=== PATIENT | male | born 1980 | race Caucasian/White ===

== ENCOUNTER 2019-03-29 12:18 | Emergency (ER) | payer OTHER ==
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
--- NOTE | 2019-03-29 13:45 | CT ---
CT cervical spine Technique: Multiple axial sections were obtained from above C1 inferiorly to the top of T2. Reconstructed sagittal and coronal images were reviewed. Findings: Vertebral body heights and disc spaces are maintained. No bony central or bony neural foraminal stenosis is seen. No fracture is appreciated. No abnormal subluxation is seen. Impression: 1. Nothing acute is appreciated on CT study of the cervical spine. Diagnostic code #1
--- NOTE | 2019-03-29 13:48 | CT ---
Head CT Technique: Multiple axial sections through the brain were obtained. Intravenous contrast was not utilized. Comparison: No prior intracranial imaging is available. Findings: Ventricles along with basal cisterns and sulci over the convexities appear within normal limits for the patient's age. No abnormal parenchymal densities are seen. No evidence of intracranial hemorrhage. No midline shift or mass effect is seen. Bone window settings were reviewed. There is mild mucosal thickening noted within the ethmoid sinuses. Mastoid sinuses are clear. No acute calvarial abnormality is appreciated. Impression: 1. Mucosal thickening within the ethmoid sinuses which is believed to be pre-existing and most likely chronic if patient has no symptoms of acute sinusitis. 2. No acute intracranial abnormality is appreciated. Diagnostic code #2
--- NOTE | 2019-03-29 13:51 | CT ---
CT lumbar spine Technique: Multiple axial sections through the lumbar spine were obtained. Reconstructed sagittal and coronal images were obtained. Comparison: No prior lumbar spine imaging. 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 Vertebral body heights and disc spaces are maintained. No acute fracture is appreciated. No bony central or bony neural foraminal stenosis is seen. No disc herniation is seen. No abnormal subluxation is seen. Impression: 1. Spondylolytic defects at L5-S1. 2. Nothing acute is appreciated on CT study of the lumbar spine. Diagnostic code #2
--- NOTE | 2019-03-29 14:30 | CR ---
Right shoulder: Three views the right shoulder were obtained. Comparison: No prior right shoulder study. Glenohumeral and acromioclavicular joints appear within normal limits. No fracture, dislocation or other bony abnormality is seen. Impression: 1. No abnormality is identified on right shoulder study. Diagnostic code #1
== END 2019-03-29 14:10 | disposition home or self-care (01) ==
LOC: JD.ED 12:18
DX: S13.4XXA Sprain of ligaments of cervical spine, initial encounter (principal); S39.012A Strain of muscle, fascia and tendon of lower back, initial encounter; S40.011A Contusion of right shoulder, initial encounter; S70.11XA Contusion of right thigh, initial encounter; S50.02XA Contusion of left elbow, initial encounter; S00.03XA Contusion of scalp, initial encounter; I10 Essential (primary) hypertension; F17.210 Nicotine dependence, cigarettes, uncomplicated; V43.52XA Car driver injured in collision with other type car in traffic accident, initial encounter
CPT/HCPCS: 70450; 70450-26; 72125; 72125-26; 72131; 72131-26; 73030-26-RT; 73030-RT; 99283; 99284-25

== ENCOUNTER 2020-07-06 19:36 | Emergency (ER) | payer BC ==
--- NOTE | 2020-07-06 20:22 | EDM.PDOC ---
ED HPI GENERAL MEDICAL PROBLEM - General Chief Complaint: Neuro Symptoms/Deficits Stated Complaint: RIGHT SIDE PAIN & NUMBNESS IN ARM AND LEG Time Seen by Provider: 07/06/20 19:45 Source of Information: Reports: Patient, Family (Broth er) History Limitations: Reports: Other (The patient seems annoyed at/reluctant to answer questions) - History of Present Illness INITIAL COMMENTS - FREE TEXT/NARRATIVE: A stroke alert was called for this patient. Mr. 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 He states that his pain was worse than usual earlier today. At around 18:30 this evening, he states that his entire right upper extremity became completely numb, lasting for about 30 minutes, until around 19:00, during which time he states that he was able to move his right upper extremity, but clumsily. States that his symptoms since resolved and have not returned. He denies any other other symptoms, such as a headache, visual changes, or nausea. The patient states that he had similar right upper extremity symptoms about 3 to 4 years ago, that it resolved after about 30 minutes, but that he did not seek medical attention at that time. Here in the ED, the patient's initial BP is found to be elevated at 173/125, with tachycardia of 107 bpm. He is afebrile, saturating 93% on room air. When asking about the patient's social history, he acknowledged that he used to drink heavily on occasion, but that he has been sober for the past 8 weeks. He states that he last smoked marijuana in 2017, and denied any other drug use. Other than his chronic back pain and this evening's right upper extremity numbness and clumsiness, the patient denies having a recent fever, chills, sore throat, ear pain, nasal or sinus congestion, cough, dyspnea, chest pain, pa lpitations, nausea, vomiting, constipation, diarrhea, abdominal pain, urinary symptoms, recent weight gain or weight loss, recent bloody bowel movements or black bowel movements, recent joint aches, headaches, or rashes. The patient does not have a PCP. He has not received an influenza vaccine this season, and declined an offer to get one here in the ED. - Related Data Allergies Allergy/AdvReac Type Severity Reaction Status Date / Time No Known Allergies Allergy Verified 03/29/19 12:32 Home Meds: Home Meds Orphenadrine [Norflex] 1 tab PO Q12H PRN #14 tab.er 07/07/20 [Rx] Past Medical History Cardiovascular History: Reports: Hypertension (untreated) Musculoskeletal History: Reports: Fracture (left toes) - Past Surgical History Musculoskeletal Surgical History: Reports: Other (See Below) (Left toes pinned) Social & Family History - Tobacco Use Tobacco Use Status *Q: Current Every Day Tobacco User Years of Tobacco use: 23 Packs/Tins Daily: 0.5 Month/Year Tobacco Last Used: Down from 1 ppd Tobacco Use Comment: Since 17 yrs old - Caffeine Use Caffeine Use: Reports: Coffee - Alcohol Use Alcohol Use History: Yes Alcohol Use Frequency: Binges - Recreational Drug Use Recreational Drug Use: Yes Drug Use in Last 12 Months: No Recreational Drug Type: Reports: Marijuana/Hashish (last smoked 2016) - Living Situation & Occupation Living situation: Reports: Single, Alone 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 ED EXAM, NEURO - Physical Exam Exam: See Below Exam Limited By: No Limitations General Appearance: Alert, WD/WN, No Apparent Distress Eye Exam: Bilateral Eye: EOMI, Normal Inspection Ears: Normal External Exam, Hearing Grossly Normal Nose: Normal Inspection Throat/Mouth: Normal Inspection, Normal Lips, Normal Voice, No Airway Compromise Head Exam: Atraumatic, Normocephalic Neck: Normal Inspection, Full Range of Motion Respiratory/Chest: No Respiratory Distress, Lungs Clear, Normal Breath Sounds, No Accessory Muscle Use Cardiovascular: Normal Peripheral Pulses, Regular Rate, Rhythm, No Edema, No Gallop, No JVD, No Murmur, No Rub GI/Abdominal: Normal Bowel Sounds, Soft, Non-Tender, No Organomegaly, No Distention, No Abnormal Bruit, No Mass Neurological: Alert, CN II-XII Intact, Oriented x 3, Other (Mild, although noticeable weakness to right upper extremity, including handgrip, and lower extremity, including to both hip flexion/extension, knee flexion/extension, and both dorsiflexion and plantarflexion of the right foot. The patient denies having any sensory deprivation to any limb at this time.) Back Exam: Normal Inspection, Full Range of Motion, NT Extremities: Normal Inspection, Normal Range of Motion, No Pedal Edema, Normal Capillary Refill Psychiatric: Flat Affect Skin Exam: Warm, Dry, Intact, Normal Color, No Rash #1 Interpretation EKG Date: 07/06/20 Time: 20:38 Rhythm: NSR Rate (Beats/Min): 74 [place]: Normal P-Wave: Enlarged (LAE) QRS: Normal ST-T: Normal QT: Normal Comparison: NA - No Prior EKG Course - Vital Signs Last Recorded V/S: Last Vital Signs Temp 37.1 C 07/06/20 20:11 Pulse 107 H 07/06/20 20:11 Resp 20 07/06/20 20:11 BP 173/125 H 07/06/20 20:11 Pulse Ox 93 L 07/06/20 20:11 - Orders/Labs/Meds Orders: Active Orders 24 hr Category Date Time Status Accu Check [Blood Glucose Check, Bedside] [RC] ONETIME Care 07/06/20 20:16 Active EKG Documentation Completion [RC] STAT Care 07/06/20 20:14 Active Chest 2V [CR] Stat Exams 07/06/20 20:13 Taken Head wo Cont [CT] Stat Exams 07/06/20 20:12 Taken DRUG SCREEN, URINE [URCHEM] Stat Lab 07/06/20 20:15 Ordered Labs: Laboratory Tests 07/06/20 07/06/20 07/06/20 Range/Units 20:00 20:00 20:00 WBC 6.44 (4.23-9.07) K/mm3 RBC 5.34 (4.63-6.08) M/mm3 Hgb 16.9 (13.7-17.5) gm/dl Hct 50.3 (40.1-51.0) % MCV 94.2 H (79.0-92.2) fl MCH 31.6 (25.7-32.2) pg MCHC 33.6 (32.2-35.5) g/dl RDW Std Deviation 46.2 H (35.1-43.9) fL Plt Count 253 (163-337) K/mm3 MPV 9.5 (9.4-12.3) fl Neutrophils % (Manual) 33 L (40-60) % Band Neutrophils % 0 (0-10) % Lymphocytes % (Manual) 60 H (20-40) % Atypical Lymphs % 0 % Monocytes % (Manual) 5 (2-10) % Eosinophils % (Manual) 2 (0.8-7.0) % Basophils % (Manual) 0 L (0.2-1.2) Platelet Estimate Adequate RBC Morph Comment Normal PT 11.4 (9.7-12.0) SECONDS INR 1.07 APTT 21.4 L (21.7-31.4) SECONDS Sodium 144 (136-145) mEq/L Potassium 3.8 (3.5-5.1) mEq/L Chloride 103 (98-107) mEq/L Carbon Dioxide 28 (21-32) mEq/L Anion Gap 16.8 H (5-15) BUN 13 (7-18) mg/dL Creatinine 1.2 (0.7-1.3) mg/dL Est Cr Clr Drug Dosing TNP Estimated GFR (MDRD) > 60 (>60) mL/min BUN/Creatinine Ratio 10.8 L (14-18) Glucose 120 H (74-106) mg/dL POC Glucose (70-105) mg/dL Calcium 8.6 (8.5-10.1) mg/dL Magnesium 2.2 (1.8-2.4) mg/dl Total Bilirubin 0.3 (0.2-1.0) mg/dL AST 97 H (15-37) U/L ALT 196 H (16-63) U/L Alkaline Phosphatase 103 (46-116) U/L Troponin I < 0.017 (0.00-0.056) ng/mL Total Protein 7.7 (6.4-8.2) g/dl Albumin 4.1 (3.4-5.0) g/dl Globulin 3.6 gm/dL Albumin/Globulin Ratio 1.1 (1-2) Ethyl Alcohol 0.25 (0.00) gm% SARS-CoV-2 RNA (JAMA) (NEGATIVE) 07/06/20 07/06/20 Range/Units 20:01 20:45 WBC (4.23-9.07) K/mm3 RBC (4.63-6.08) M/mm3 Hgb (13.7-17.5) gm/dl Hct (40.1-51.0) % MCV (79.0-92.2) fl MCH (25.7-32.2) pg MCHC (32.2-35.5) g/dl RDW Std Deviation (35.1-43.9) fL Plt Count (163-337) K/mm3 MPV (9.4-12.3) fl Neutrophils % (Manual) (40-60) % Band Neutrophils % (0-10) % Lymphocytes % (Manual) (20-40) % Atypical Lymphs % % Monocytes % (Manual) (2-10) % Eosinophils % (Manual) (0.8-7.0) % Basophils % (Manual) (0.2-1.2) Platelet Estimate RBC Morph Comment PT (9.7-12.0) SECONDS INR APTT (21.7-31.4) SECONDS Sodium (136-145) mEq/L Potassium (3.5-5.1) mEq/L Chloride (98-107) mEq/L Carbon Dioxide (21-32) mEq/L Anion Gap (5-15) BUN (7-18) mg/dL Creatinine (0.7-1.3) mg/dL Est Cr Clr Drug Dosing Estimated GFR (MDRD) (>60) mL/min BUN/Creatinine Ratio (14-18) Glucose (74-106) mg/dL POC Glucose 114 H (70-105) mg/dL Calcium (8.5-10.1) mg/dL Magnesium (1.8-2.4) mg/dl Total Bilirubin (0.2-1.0) mg/dL AST (15-37) U/L ALT (16-63) U/L Alkaline Phosphatase (46-116) U/L Troponin I (0.00-0.056) ng/mL Total Protein (6.4-8.2) g/dl Albumin (3.4-5.0) g/dl Globulin gm/dL Albumin/Globulin Ratio (1-2) Ethyl Alcohol (0.00) gm% SARS-CoV-2 RNA (JAMA) Negative (NEGATIVE) Meds: Medications Discontinued Medications Generic Name Dose Route Start Last Admin Trade Name Freq PRN Reason Stop Dose Admin Sodium Chloride 1,000 mls @ 999 mls/hr 07/06/20 22:18 07/06/20 22:32 Normal Saline IV 07/06/20 23:18 999 mls/hr ONETIME ONE Administration Ketorolac Tromethamine 30 mg 07/06/20 20:52 07/06/20 20:52 Toradol IVPUSH 07/06/20 20:53 30 mg ONETIME STA Administration Orphenadrine Citrate 100 mg 07/06/20 20:52 07/06/20 20:52 Norflex PO 07/06/20 20:53 100 mg ONETIME STA Administration - Re-Assessments/Exams Free Text/Narrative Re-Assessment/Exam: 07/06/20 20:17 As above, the patient has had over 30 years of waxing and waning mid-back pain, which was worse today than usual, then developed complete anesthesia to his right upper extremity for 30 minutes between 18:30 and 19:00, which has since resolved, but was associated with clumsiness, and on his neurologic examination, I find that he is weak to both his right upper and lower extremity, with no sensory abnormality. His symptoms are suggestive of a migraine, however, he denies having a headache or nausea at any time. I have ordered a work-up that includes numerous blood tests, a urine drug screen, a swab for the SARS-CoV-2 virus, a chest x-ray, a CT of the head without contrast, and an ECG. 07/06/20 21:03 CT of the head without contrast is read by Isaac as: IMPRESSION: No acute intracranial abnormality. No evidence of acute ischemia. ASSESSMENT: ASPECTS ([place] Stroke Program Early CT Score) is 10. 07/06/20 22:14 Two-view chest radiograph appears to be grossly normal. The cardiac silhouette is within normal limits. No pulmonary vascular congestion. No pleural effusions. No focal infiltrate. No pneumothorax. Formal read per the Radiologist pending. The patient's CBC is unremarkable. His CMP is remarkable for an anion gap mildly elevated at 16.8, but with a bicarbonate normal at 28. He has mild hyperglycemia of 120. His AST/ALT are elevated at 97/196, respectively, with the remainder of his CMP being unremarkable. His magnesium level is within normal limits at 2.2. His troponin is undetectably low. His coags are within normal limits. His EtOH level is significantly elevated at 0.25. His swab for the SARS-CoV-2 virus returned negative. The patient has not yet provided a urine sample for the urine drug screen. I will order a bolus of IV fluid. 07/06/20 23:42 The patient has still not provided a urine sample for the urine drug screen. His most recent BP is 131/85, with a HR of 80 bpm. 07/06/20 23:52 Case discussed with Michelle at [facility] at 23:45. Case then discussed with Dr. Chavez, Neurologist at [facility], at 23:49. He stated that he did not feel that there is anything to be concerned about, but that if his symptoms persisted, that he could have an outpatient work-up through a PCP. 07/07/20 00:03 Notified by Idalia MAYO that the patient's brother was wondering if he could take the patient home. I discussed the patient's test results and my conversation with Dr. Chavez with the patient's brother - the patient has been sleeping the whole time. He was aware that his brother was drinking today but was convinced that the patient has not been using any recreational drugs. He was wondering what can be done about his back pain. I will submit a prescription for Norflex that the patient can take with [id number] ibuprofen, but because of the patient's acute alcohol intoxication, I would prefer not to start him on that right now. I will discharge the patient with a referral to [facility], as well as for a PCP. Departure - Departure Time of Disposition: 00:05 Disposition: Home, Self-Care 01 Condition: Good Clinical Impression: Alcohol intoxication, Alcohol abuse, Weakness of right upper extremity, Weakness of right lower extremity, Chronic back pain - Discharge Information *PRESCRIPTION DRUG MONITORING PROGRAM REVIEWED*: Not Applicable *COPY OF PRESCRIPTION DRUG MONITORING REPORT IN PATIENT NORTH: Not Applicable Referrals: PCP,None [Primary Care Provider] - Dionna Gan NP [Nurse Practitioner] - Forms: ED Department Discharge Additional Instructions: You were seen in the emergency room after developing numbness to your right arm for 30 minutes this evening, and on examination, you had some weakness to your right arm and right leg. You were also suffering from an exacerbation of your chronic back pain. Work-up in the ER included numerous blood tests, a chest x-ray, a CT of your head without contrast, a swab for the SARS-CoV-2 virus, and an ECG. You did not provide a urine sample for urine tests. Your work-up was completely unremarkable, with the exception of your alcohol level being found to be significantly elevated at 0.25. For reference, that is over 3 times the upper legal limit for driving. Your case was discussed with a Neurologist, who did not feel that your symptoms represented a neurologic emergency. He recommended that you follow-up with a primary care provider for an outpatient evaluation if your symptoms persist. We recommend that you follow-up with Dionna Gan NP, or one of the other providers in the clinic, to establish a PCP. Call to make an appointment. For your back pain, prescription for the muscle-relaxant medicine Norflex has been sent to the [facility] pharmacy, located at [address] [place] [address]. The pharmacy will be open between 8 AM and 1 PM tomorrow. Take 1 tablet of Norflex every 12 hours, starting tomorrow morning, 07/07/2020, as prescribed. Norflex works well with ibuprofen. You may take 3 tablets (600 mg) of over the counter ibuprofen up to every 8 hours, as needed for back pain. We strongly recommend that you stop drinking, and that you get professional help to do so. We recommend that you go to [facility] Services: [facility] [place][note 2] [facility] [phone] If any other problems, please do not hesitate to return to the ER. Sepsis Event Note (ED) - Evaluation Sepsis Screening Result: No Definite Risk - Focused Exam Vital Signs: Vital Signs Temp Pulse Resp BP Pulse Ox 07/06/20 20:11 37.1 C 107 H 20 173/125 H 93 L - My Orders Last 24 Hours: My Active Orders 07/06/20 20:12 Head wo Cont [CT] Stat 07/06/20 20:13 Chest 2V [CR] Stat 07/06/20 20:14 EKG Documentation Completion [RC] STAT 07/06/20 20:15 DRUG SCREEN, URINE [URCHEM] Stat 07/06/20 20:16 Accu Check [Blood Glucose Check, Bedside] [RC] ONETIME - Assessment/Plan Last 24 Hours: My Active Orders 07/06/20 20:12 Head wo Cont [CT] Stat 07/06/20 20:13 Chest 2V [CR] Stat 07/06/20 20:14 EKG Documentation Completion [RC] STAT 07/06/20 20:15 DRUG SCREEN, URINE [URCHEM] Stat 07/06/20 20:16 Accu Check [Blood Glucose Check, Bedside] [RC] ONETIME
[2020-07-06] MEDS ORDERED: Orphenadrine 100 MG Tab.ER PO STA (20:52)
[2020-07-06] MEDS ORDERED: Ketorolac 30 MG/ML SDV IVPUSH STA (20:52)
[2020-07-06] MEDS ORDERED: Sodium Chloride 0.9% 1,000 ML IV ONE (22:18)
--- NOTE | 2020-07-07 08:12 | CR ---
Chest: 2 views of the chest were obtained. Comparison: No prior chest imaging is available. Heart size and mediastinum are normal. Lungs are clear with no acute parenchymal change. Bony structures appear within normal limits for the patient's age. Impression: 1. Nothing acute is seen on 2 view chest x-ray. Diagnostic code #1
--- NOTE | 2020-07-07 09:04 | CT ---
Head CT Technique: Multiple axial sections through the brain were obtained. Intravenous contrast was not utilized. Comparison: Prior head CT study of 03/29/19. Findings: Ventricles along with basal cisterns and sulci over convexities appear within normal limits for the patient's age. No abnormal parenchymal densities are seen. No evidence of intracranial hemorrhage. No midline shift or mass-effect is appreciated. Bone window settings were reviewed. Scattered mucosal thickening is seen within the right frontal and ethmoid sinuses. No air-fluid levels are seen within the sinuses. Mastoid sinuses show nothing acute. No acute calvarial finding is appreciated. Impression: 1. Nothing acute is seen on noncontrast head CT study. 2. Mucosal thickening is noted within the ethmoid and frontal sinuses which mostly appears to be chronic. 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
== END 2020-07-07 00:32 | disposition home or self-care (01) ==
LOC: JD.ED 19:36
DX: G89.29 Other chronic pain (principal); M54.6 Pain in thoracic spine; R53.1 Weakness; F10.129 Alcohol abuse with intoxication, unspecified; R74.01 Elevation of levels of liver transaminase levels; I10 Essential (primary) hypertension; Z72.0 Tobacco use; Z20.822 Contact with and (suspected) exposure to COVID-19
CPT/HCPCS: 36415; 70450; 71046; 80053; 80179; 82962; 83735; 84484; 85007; 85027; 85610; 85730; 87635; 93005; 96374; 99284; A9270; J1885; J7030; 93010; U0002